=== PATIENT | female | born 1985 | race Native Hawaiian/Other Pacific Islander ===

== ENCOUNTER 2016-07-02 08:50 | Emergency (ER) | payer OTHER ==
[~2016-07-02] VITALS: Ht 149.9 cm; Wt 103.9 kg
== END 2016-07-02 09:53 | disposition home or self-care (01) ==
LOC: ED 08:50
DX: R68.84 Jaw pain (principal); K02.9 Dental caries, unspecified; K04.7 Periapical abscess without sinus; K05.30 Chronic periodontitis, unspecified
CPT/HCPCS: 99281

== ENCOUNTER 2016-07-04 18:15 | Emergency (ER) | payer OTHER ==
[~2016-07-04] VITALS: Ht 149.9 cm; Wt 103.9 kg
== END 2016-07-04 19:20 | disposition home or self-care (01) ==
LOC: ED 18:15
DX: K02.9 Dental caries, unspecified (principal); R22.0 Localized swelling, mass and lump, head
CPT/HCPCS: 99282

== ENCOUNTER 2019-09-29 21:54 | Emergency (ER) | payer OTHER ==
[~2019-09-29] VITALS: Ht 149.9 cm; Wt 111.1 kg
[~2019-09-29 21:54] MED LIST: GLIP10TA55 PO; LISI10TA11 PO; METFORMIN ER1000 MG PO; METOPROLOL25 M1 PO; ZOLOFT25 MG
[2019-09-29 22:58] VITALS: BP 126/78; TEMP 98.2
[2019-10-02] MEDS ORDERED: ZOLOFT25 MG PO (00:28)
== END 2019-09-29 22:58 | disposition home or self-care (01) ==
LOC: ED 21:54
DX: L74.0 Miliaria rubra (principal)
CPT/HCPCS: 96372; 99283; J1200; J2930

== ENCOUNTER 2019-10-01 11:37 | Inpatient (IN) | payer OTHER ==
[2019-10-01] VITALS (7 sets, daily range): BP systolic 105–136; BP diastolic 51–83; TEMP 97.7–98.9; Ht 149.9 cm; Wt 109.8 kg
[~2019-10-01] VITALS: Ht 149.9 cm; Wt 109.8 kg
[2019-10-01 13:10] LABS: POTASSIUM 3.9 mmol/L (3.6-5.2)
[2019-10-01 13:27] LABS: PLATELET COUNT 4 K/uL (152-353)
[2019-10-02] VITALS (9 sets, daily range): BP systolic 109–154; BP diastolic 52–99; TEMP 97.7–98.4
[2019-10-02] MEDS ORDERED: ZOLOFT25 MG PO ×2 (00:28)
[2019-10-02 05:30] LABS: PLATELET COUNT 5 K/uL (152-353)
[2019-10-02 05:33] LABS: POTASSIUM 3.9 mmol/L (3.6-5.2)
[2019-10-03 01:00] LABS: PLATELET COUNT 9 K/uL (152-353)
[2019-10-03 03:43] VITALS: BP 119/58; TEMP 97.7
[2019-10-03 08:00] VITALS: BP 119/74; TEMP 98
[2019-10-03 12:00] VITALS: BP 156/95; TEMP 98.9
[2019-10-03 16:00] VITALS: BP 132/87; TEMP 98.1
[2019-10-03 20:25] VITALS: BP 152/86; TEMP 98.1
[2019-10-03 23:50] VITALS: BP 118/70; TEMP 97.9
[2019-10-04 02:17] LABS: PLATELET COUNT 36 K/uL (152-353)
[2019-10-04 03:41] VITALS: BP 169/88; TEMP 98.1
[2019-10-04 08:00] VITALS: BP 149/71; TEMP 97.7
[2019-10-04] MEDS ORDERED: DEXA4TAB2 PO ×2 (13:04)
== END 2019-10-04 16:20 | disposition home or self-care (01) | DRG 813 ==
LOC: ED 11:37 → MED/SURG 16:10
PROVIDERS: Internal Medicine; ADMIT Family Medicine
DX: D69.3 Immune thrombocytopenic purpura (principal); N39.0 Urinary tract infection, site not specified; E11.9 Type 2 diabetes mellitus without complications; I10 Essential (primary) hypertension; E28.2 Polycystic ovarian syndrome; F32.89 Other specified depressive episodes
CPT/HCPCS: 36415; 80053; 81000; 81025; 82728; 82962; 83605; 83615; 85007; 85027; 85379; 86022; 86803; 86900; 86901; 87040; 87086; 87088; 87535; 87635; 96365; 96375; 99284; G0432; J0696; J1815; J1956; J2930; J3370; P9035; U0003

== ENCOUNTER 2019-10-05 19:32 | Emergency (ER) | payer OTHER ==
[~2019-10-05] VITALS: Ht 149.9 cm; Wt 107.0 kg
[~2019-10-05 19:32] MED LIST changes: +DEXA4TAB2 PO; +ZOLOFT25 MG PO
[2019-10-05 20:26] LABS: PLATELET COUNT 105 K/uL (152-353)
[2019-10-05 20:35] LABS: POTASSIUM 4.2 mmol/L (3.6-5.2)
[2019-10-05 22:45] VITALS: BP 126/58; TEMP 98.1
== END 2019-10-05 22:45 | disposition home or self-care (01) ==
LOC: ED 19:32
PROVIDERS: Emergency Medicine
DX: E11.65 Type 2 diabetes mellitus with hyperglycemia (principal); Z79.84 Long term (current) use of oral hypoglycemic drugs
CPT/HCPCS: 36415; 80053; 81000; 81002; 82962; 85027; 96360; 96375; 96376; 99284; J1815